=== PATIENT | female | born 1960 | race Asian ===

== ENCOUNTER 2019-01-01 09:28 | Day surgery (SDC) | payer MEDICAID ==
--- NOTE | 2018-12-29 15:09 | PREOPHP ---
DATE OF SURGERY: 01/01/2019 Scheduled for outpatient surgery on 01/01/2019. HISTORY OF PRESENT ILLNESS: The patient is a 58-year-old female in overall stable health who recently underwent screening mammography as well as ultrasound revealing a 6 mm nodule in the right breast at 3 o'clock in the subareolar position. Core needle biopsy revealed scanty tissue, but the findings were suspicious for intracystic papillary neoplasm. The patient is going to undergo right breast biopsy with preoperative needle localization. PAST MEDICAL HISTORY: MEDICATIONS: 1. Losartan for hypertension. 2. Vitamin B12. ALLERGIES: NONE. OPERATIONS: None. GYNECOLOGIC AND OBSTETRIC HISTORY: She is 4, para 4 and menopausal. PHYSICAL EXAMINATION: GENERAL: The patient is 5-foot 2 inches, 151 pounds. VITAL SIGNS: Stable. HEENT: Within normal limits. LUNGS: Clear. HEART: Regular rate, rhythm. BREASTS: Medium in size. There is no palpable mass in either breast. There are no skin or nipple changes or primary or secondary signs of tumor. There is no axillary or supraclavicular lymphadenopathy. ABDOMEN: Soft. PELVIC AND RECTAL: Per primary care doctor. EXTREMITIES: Without edema. NEUROLOGIC: Physiologic. IMPRESSION: Right breast mass with core biopsy suspicious for intracystic papillary neoplasm. PLAN: Excisional biopsy of right breast mass with preoperative needle localization. I had a full discussion with the patient regarding the nature of her condition, the nature of the surgery, indications, alternatives, options and risks including bleeding, infection, need for additional surgery or procedures or treatments based on final pathology, scarring or distortion of the breast or nipple, et cetera. She understands and agrees to proceed. Dictated By: CHRISTOPHER GARZA/MARY Conf#: [id number] DID#: [id number] MTDD
[2019-01-01] VITALS (16 sets, daily range): BP systolic 93–129; BP diastolic 45–68; PULSE 54–70; RESP 12–25; Ht 157.5 cm; Wt 69.2 kg
[~2019-01-01] VITALS: Ht 157.5 cm; Wt 69.2 kg
[~2019-01-01 09:28] MED LIST: CEFAZOLIN 1 GM/50 ML (PMX) 50 ML IVPB ONE; SOD CHLORIDE 0.9% 1,000 ML IV SCH
--- NOTE | 2019-01-01 11:48 | HPN ---
Date/Time of Note Date/Time of Note DATE: 01/01/19 TIME: 11:48 Interval H&P Admission Note Pt. seen H&P reviewed: No system changes CHRISTOPHER BELCHER January 01, 2019 11:48
[2019-01-01] MEDS ORDERED: LOSA25TA12 PO (12:11)
[2019-01-01] MEDS ORDERED: LIDOCAINE 1% (MPF) 30 ML INJ ONE (15:14)
[2019-01-01] MEDS ORDERED: BUPIVACAINE 0.5% (SDV) 30 ML INJ ONE (15:14)
--- NOTE | 2019-01-01 15:21 | PREAC ---
Date/Time of Note Date/Time of Note DATE: 01/01/19 TIME: 15:20 Anesthesia Eval and Record Evaluation Time Pre-Procedure Interview DATE: 01/01/19 TIME: 15:20 Age 58 Sex female NPO: 8 hrs Preoperative diagnosis Breast Mass Planned procedure Excision Breast Mass Past Medical History Past Medical History: Includes Cardio: HTN GI: Obesity Surgery & Anesthesia Issues No known issue Meds Anticoagulation: No Beta Nicol within 24 hr: No Reason Beta Nicol not given: Pt. not on B-Nicol Reported Medications Losartan Potassium* (Losartan Potassium*) 25 Mg Tablet, 25 MG PO DAILY, TAB 01/01/19 Current Medications Sodium Chloride 1,000 ml @ 75 mls/hr [id number] IV Last administered on 01/01/19at 13:19; Admin Dose 75 MLS/HR; Start 01/01/19 at 06:00; Stop 01/01/19 at 18:00 Meds reviewed: Yes Allergies Coded Allergies: No Known Drug Allergies (Verified Allergy, Unknown, 01/01/19) Allergies Reviewed: Yes Labs/Studies Labs Reviewed: Reviewed by anesthesiologist test: N/A Pre-procedure Exam Last vitals Vital Signs Date Temp Pulse Resp B/P (MAP) Pulse Ox O2 O2 Flow FiO2 Time Delivery Rate 01/01/19 98.0 70 16 118/56 99 Room Air 13:13 (76) Airway: Adequate mouth opening Mallampati: Mallampati II Teeth: Normal Lung: Normal Heart: Normal ASA Physical Status ASA physical status: 2 Emergency: None Planned Anesthetic General/MAC: LMA Pre-operative Attestations Prior to commencing anesthesia and surgery, the patient was re-evaluated, there was verification of: *The patient's identity *The results of appropriate recent lab work and preoperative vital signs *The above evaluation not changing prior to induction *Anesthetic plan, risk benefits, alternative and complications discussed with patient/family; questions answered; patient/family understands, accepts and wishes to proceed. SOFI ELLIOTT MD January 01, 2019 15:21
[2019-01-01] MEDS ORDERED: MIDAZOLAM 1 MG/ML 2 ML INJ ONE (15:26)
[2019-01-01] MEDS ORDERED: CEFAZOLIN 1 GM INJ ONE (15:26)
[2019-01-01] MEDS ORDERED: PROPOFOL 20 ML ONE (15:26)
[2019-01-01] MEDS ORDERED: KETOROLAC 30 MG INJ ONE (15:27)
[2019-01-01] MEDS ORDERED: ONDANSETRON 4 MG INJ ONE (15:27)
[2019-01-01] MEDS ORDERED: PHENYLephrine (100 MCG/ML) 10ML SYG ONE (15:49)
[2019-01-01] MEDS ORDERED: ONDANSETRON 4 MG INJ IV PRN (16:00)
[2019-01-01] MEDS ORDERED: OXYCODONE/ACETAMINOPHEN (5/325) TAB PO PRN (16:00)
[2019-01-01] MEDS ORDERED: HYDROmorphONE 1 MG/5 ML IV SYRINGE IV PRN (16:00)
--- NOTE | 2019-01-01 16:25 | SIPON ---
Date/Time of Note Date/Time of Note DATE: 01/01/19 TIME: 16:23 Operative Report Preoperative Diagnosis right breast mass Postoperative Diagnosis same Operation/Procedure Performed right breast biopsy with pre-op needle localization Surgeon see signature line assistant athletic trainer none Anesthesia: general Estimated blood loss: minimal Transfusion Required none Specimen right breast mass Grafts/Implants none Complications none CHRISTOPHER BELCHER January 01, 2019 16:25
--- NOTE | 2019-01-01 16:26 | PAC ---
Date/Time of Note Date/Time of Note DATE: 01/01/19 TIME: 16:26 Post-Anesthesia Notes Post-Anesthesia Note Last documented vital signs Vital Signs Date Temp Pulse Resp B/P (MAP) Pulse Ox O2 O2 Flow FiO2 Time Delivery Rate 01/01/19 98.0 70 16 118/56 99 Room Air 13:13 (76) Activity: WNL Respiratory function: WNL Cardiovascular function: WNL Mental status: Baseline Pain reasonably controlled: Yes Hydration appropriate: Yes Nausea/Vomiting absent: Yes SOFI ELLIOTT MD January 01, 2019 16:26
--- NOTE | 2019-01-01 18:29 | OPR ---
DATE OF OPERATION: 01/01/2019 SURGEON: Christopher Ayala MD CONDUIT WORKER: None. ANESTHESIOLOGIST: Sumanth Ghosh MD. TYPE OF ANESTHESIA: General. PREOPERATIVE DIAGNOSIS: Right breast mass. POSTOPERATIVE DIAGNOSIS: Right breast mass. OPERATION PERFORMED: Excisional biopsy of right breast mass with preoperative needle localization. INDICATIONS: The patient had a 6 mm mass on screening mammogram at the retroareolar portion of the r ight breast with core biopsy revealing possible intracystic papillary neoplasm with insufficient tiss ue for diagnosis. DESCRIPTION OF PROCEDURE: The patient was taken to the operating room and under general anesthesia w ith sequential compression device stockings in place, she was prepped and draped in the usual fashion . The wire localization was just lateral to the areola at 9 o'clock. A superiorly based circumareol ar incision was made with slight extension laterally to the right. The wire was brought into the fie ld. The appropriate sector of tissue was removed with a wide margin incorporating the previously brandon mela clip and the wire from localization. The specimen was oriented for pathology with suture markers anterior, superior and medial. The specimen was given for specimen radiograph and then pathology. The field was irrigated and the hemostasis carefully achieved with cautery. The incision was closed with interrupted 3-0 Vicryl, deep dermal subcutaneous sutures followed by continuous 4-0 Monocryl sub cuticular suture. Tincture of benzoin and 1/2-inch Steri-Strips were applied, followed by dry steril e dressing. Final sponge and needle counts were correct. The patient tolerated the procedure well a nd left the operating room in good condition. Dictated By: CHRISTOPHER GARZA/MARY Conf#: [id number] DID#: [id number]
== END 2019-01-01 18:36 | disposition home or self-care (01) ==
LOC: SDS 09:28
PROVIDERS: ATTEND Surgery
DX: N60.91 Unspecified benign mammary dysplasia of right breast (principal); N60.11 Diffuse cystic mastopathy of right breast
CPT/HCPCS: 19120; 71045; 88307; J0690; J1885; J2250; J2370; J2405; J3010; Z7512; Z7610